=== PATIENT | female | born 1945 | race Caucasian/White ===

== ENCOUNTER 2016-11-17 16:41 | Emergency (ER) | payer OTHER, MEDICARE ==
[2016-11-17 17:23] VITALS: PULSE 67; TEMP 98.2; BMI 32.3
--- NOTE | 2016-11-17 18:00 | PDOC ---
History of Present Illness - General History Source: Patient, Family - History of Present Illness Timing/Duration: other (today) Associated Symptoms: denies: chest pain, cough, fever/chills, headaches, malaise , nausea/vomiting, shortness of breath, syncope, weakness <Pippa Lujan - Last Filed: 11/17/16 19:04> <Yamilka Clemente - Last Filed: 11/17/16 20:00> <Magda Li - Last Filed: 11/18/16 17:45> - General Chief Complaint: Blood Pressure Problem Stated Complaint: BLOOD PRESSURE PROBLEM Time Seen by Provider: 11/17/16 17:37 Past History - Past Medical History Anemia: No Asthma: No Cancer: Yes (radiation left breast) Cardiac Disorders: No CVA: No COPD: No CHF: No Dementia: No Diabetes: Yes GI Disorders: No Disorders: No HTN: Yes Hypercholesterolemia: No Liver Disease: No Seizures: No Thyroid Disease: No - Surgical History Abdominal Surgery: No Appendectomy: No Cardiac Surgery: No Cholecystectomy: No Lung Surgery: No Neurologic Surgery: No Orthopedic Surgery: No - Suicide/Smoking/Psychosocial Hx Smoking Status: No Smoking History: Never smoked Have you smoked in the past 12 months: No Number of Cigarettes Smoked Daily: 0 Information on smoking cessation initiated: No Hx Alcohol Use: No Drug/Substance Use Hx: No Substance Use Type: None Hx Substance Use Treatment: No <Pippa Lujan - Last Filed: 11/17/16 19:04> <Yamilka Clemente - Last Filed: 11/17/16 20:00> <Magda Li - Last Filed: 11/18/16 17:45> - Past Medical History Allergies/Adverse Reactions: Allergies Allergy/AdvReac Type Severity Reaction Status Date / Time Penicillins Allergy Unknown Verified 11/17/16 17:24 Home Medications: Ambulatory Orders Metformin HCl [Glucophage -] 500 mg PO BID #0 tablet 11/15/12 Lisinopril [Prinivil -] 40 mg PO DAILY 07/28/15 Alprazolam [Xanax] 0.25 mg PO TID PRN #12 tablet MDD 3 tab 11/17/16 Anastrozole [Arimidex -] 1 mg PO DAILY 11/17/16 Nebivolol [Bystolic -] 10 mg PO DAILY 11/17/16 Pantoprazole Sodium 40 mg PO DAILY 11/17/16 Review of Systems - Review of Systems Constitutional: No: Chills, Fever Respiratory: No: Cough, Shortness of Breath Cardiac (ROS): No: Chest Pain, Lightheadedness, Palpitations, Syncope ABD/GI: No: Nausea, Vomiting Neurological: No: Headache, Numbness, Tingling, Weakness, Dizziness <MacedonianPippa - Last Filed: 11/17/16 19:04> *Physical Exam - Vital Signs Last Vital Signs Temp Pulse Resp BP Pulse Ox 98.2 F 67 16 183/77 97 11/17/16 17:17 11/17/16 17:17 11/17/16 17:17 11/17/16 17:17 11/17/16 17:17 - Physical Exam General Appearance: Yes: Appropriately Dressed. No: Apparent Distress HEENT: positive: Normal Voice Neck: positive: Supple Respiratory/Chest: positive: Lungs Clear, Normal Breath Sounds. negative: Respiratory Distress Cardiovascular: positive: Regular Rate, S1, S2 Gastrointestinal/Abdominal: positive: Soft. negative: Tender, Pulsatile Mass Extremity: positive: Normal Inspection Integumentary: positive: Dry, Warm Neurologic: positive: Fully Oriented, Alert, Normal Mood/Affect, Motor Strength 5/5. negative: Facial Droop <Pippa Lujan - Last Filed: 11/17/16 19:04> - Vital Signs Last Vital Signs Temp Pulse Resp BP Pulse Ox 98.2 F 67 16 183/77 98 11/17/16 17:17 11/17/16 17:17 11/17/16 17:17 11/17/16 17:17 11/17/16 18:14 <Yamilka Clemente - Last Filed: 11/17/16 20:00> - Vital Signs Last Vital Signs Temp Pulse Resp BP Pulse Ox 98.2 F 67 16 164/86 98 11/17/16 17:17 11/17/16 17:17 11/17/16 17:17 11/17/16 20:25 11/17/16 18:14 <Magda Li - Last Filed: 11/18/16 17:45> Heart Score/ECG Review - ECG Intrepretation Comment:: 11/17/16 18:20 Twelve-lead EKG was performed and reviewed by me. There is normal sinus rhythm with a normal rate. The axis is normal. The intervals are normal. There are no ST or T wave abnormalities. Impression: Normal twelve-lead EKG <MacedonianPippa - Last Filed: 11/17/16 19:04> ED Treatment Course - LABORATORY CBC & Chemistry Diagram: 11/17/16 18:05 11/17/16 18:05 <Pippa Lujan - Last Filed: 11/17/16 19:04> - LABORATORY CBC & Chemistry Diagram: 11/17/16 18:05 11/17/16 18:05 - ADDITIONAL ORDERS Additional order review: Laboratory Results 11/17/16 11/17/16 19:27 18:05 Sodium 141 Potassium 4.2 Chloride 109 H Carbon Dioxide 25 Anion Gap 7 L BUN 21 H Creatinine 0.9 Creat Clearance w eGFR > 60 Random Glucose 107 H Calcium 8.9 Total Bilirubin 0.6 D AST 14 L D ALT 21 D Alkaline Phosphatase 73 Creatine Kinase 99 Troponin I < 0.02 Total Protein 7.2 Albumin 3.7 D Urine Color Lt. yellow Urine Appearance Clear Urine pH 6.5 D Urine Protein Negative Urine Glucose (UA) Negative Urine Ketones Negative Urine Blood Negative Urine Nitrite Negative Urine Bilirubin Negative Urine Urobilinogen 0.2 Urine RBC None Urine WBC <1 Ur Epithelial Cells Rare Urine Bacteria Rare 11/17/16 18:05 RBC 4.59 MCV 83.1 MCHC 33.9 RDW 13.8 MPV 8.0 Neutrophils % 72.5 Lymphocytes % 16.3 D Monocytes % 9.5 Eosinophils % 1.2 D Basophils % 0.5 <Yamilka Clemente D - Last Filed: 11/17/16 20:00> - LABORATORY CBC & Chemistry Diagram: 11/17/16 18:05 11/17/16 18:05 - ADDITIONAL ORDERS Additional order review: 11/17/16 18:05 RBC 4.59 MCV 83.1 MCHC 33.9 RDW 13.8 MPV 8.0 Neutrophils % 72.5 Lymphocytes % 16.3 D Monocytes % 9.5 Eosinophils % 1.2 D Basophils % 0.5 - Medications Given in the ED: ED Medications Discontinued Medications Generic Name Dose Route Start Last Admin Trade Name Freq PRN Reason Stop Dose Admin Alprazolam 0.25 mg 11/17/16 20:00 11/17/16 20:09 Xanax - PO 11/17/16 20:01 0.25 mg ONCE ONE Administration <Magda Li - Last Filed: 11/18/16 17:45> Medical Decision Making - Medical Decision Making 11/17/16 17:56 71-year-old female, history of NIDDM, gastritis, HTN on 40mg of lisinopril, sent in from Dr. Flores's office today for elevated BP in office. Patient states she had a routine appointment today with GI today and when vitals were taken, found to have a blood pressure of 200/100 and sent to the ED. Patient not complaining of any symptoms at this time and denies headache, dizziness, blurry vision, focal weakness, chest pain or shortness of breath. See exam Asymptomatic elevated BP Pt well pat w/ BP of 183/77, was 200/100 in office today per family Rest of exam unremarkable -labs r/o EOD and reassess -anticipate discharge 11/17/16 17:58 11/17/16 18:49 11/17/16 18:51 Pt signed out to ANNE Clemente pending ua and reassessment 11/17/16 18:53 11/17/16 19:05 <Pippa Lujan - Last Filed: 11/17/16 19:04> *DC/Admit/Observation/Transfer <Pippa Lujan - Last Filed: 11/17/16 19:04> <Yamilka Clemente - Last Filed: 11/17/16 20:00> - Attestations Physician Attestion: I reviewed the case with the mid-level practitioner and agree with the mid- level practitioner's assessment, diagnosis and disposition. <Magda Li - Last Filed: 11/18/16 17:45> Diagnosis at time of Disposition: Elevated blood pressure reading - Discharge Dispostion Disposition: HOME Condition at time of disposition: Improved - Prescriptions Prescriptions: Alprazolam [Xanax] 0.25 mg PO TID PRN #12 tablet MDD 3 tab PRN Reason: Anxiety - Referrals Referrals: Vernon Flores MD [Primary Care Provider] - - Patient Instructions Printed Discharge Instructions: DI for High Blood Pressure Additional Instructions: Your blood pressure improved in ED but was still elevated. Your blood work were all normal. Over the weekend, please go to any local drug store and have BP checked by pharmacist. If BP persistently significantly elevated and you develop symptoms, return to the ED immediately. Otherwise follow-up with your PMD on Sunday for further management of your hypertension Print Language: VIETNAMESE
[2016-11-17 18:19] LABS: BASOPHIL 0.5 % (0-2.0); EOSINOPHIL 1.2 % (0-4.5); MCH 28.2 pg (25.7-33.7); MCHC 33.9 g/dl (32.0-36.0); MEAN CELL VOLUME 83.1 fl (80-96); NEUTROPHILS 72.5 % (42.8-82.8); PLATELET COUNT 271 K/MM3 (134-434); RDW 13.8 % (11.6-15.6)
[2016-11-17 18:39] LABS: ALBUMIN 3.7 g/dl (3.4-5.0); ANION GAP 7 (8-16); BILIRUBIN,TOTAL 0.6 mg/dL (0.2-1.0); CALCIUM 8.9 mg/dL (8.5-10.1); CO2 25 mmol/L (21-32); CREATININE 0.9 mg/dL (0.55-1.02); GLUCOSE,RANDOM 107 mg/dL (74-106); SGOT/AST 14 U/L (15-37); SGPT/ALT 21 U/L (12-78); TOT PROT 7.2 g/dl (6.4-8.2)
[2016-11-17 18:42] LABS: ALK PHOS 73 U/L (45-117); CPK 99 IU/L (26-192); TROPONIN I < 0.02 ng/ml (0.00-0.05)
[2016-11-17 19:42] LABS: PH,URINE 6.5 (5.0-8.0); URINE APPEARANCE CLEAR; URINE BILIRUBIN NEGATIVE (NEGATIVE); URINE BLOOD NEGATIVE (NEGATIVE); URINE COLOR LT. YELLOW; URINE GLUCOSE (UA) NEGATIVE (NEGATIVE); URINE KETONE NEGATIVE (NEGATIVE); URINE LEUK ESTERASE 1+ (NEGATIVE); URINE NITRITE NEGATIVE (NEGATIVE); URINE PROTEIN NEGATIVE (NEGATIVE); URINE UROBILINOGEN 0.2 mg/dL (0.2-1.0)
[2016-11-17 19:50] LABS: URINE BACTERIA RARE /hpf (NONE SEEN); URINE WBC <1 /hpf (3-5)
[2016-11-17] MEDS ORDERED: ALPRAZolam 0.25 MG TABLET PO ONE (20:00)
[2016-11-17] MEDS ORDERED: ALPRAZolam 0.25 MG TABLET ONE (20:08)
[2016-11-17 20:26] VITALS: BP 164/86
--- NOTE | 2016-11-19 08:45 | EKG ---
Test Reason : Blood Pressure : / mmHG Vent. Rate : 061 BPM Atrial Rate : 061 BPM P-R Int : 150 ms QRS Dur : 088 ms QT Int : 414 ms P-R-T Axes : 025 000 -05 degrees QTc Int : 416 ms NORMAL SINUS RHYTHM VOLTAGE CRITERIA FOR LEFT VENTRICULAR HYPERTROPHY ABNORMAL ECG Confirmed by MD ERIN, CAMERON ([id number]) on 11/19/2016 8:44:27 AM Referred By: Confirmed By:CAMERON KHAN MD
== END 2016-11-17 20:25 | disposition home or self-care (01) ==
LOC: JER 16:41
DX: I10 Essential (primary) hypertension (principal); E11.9 Type 2 diabetes mellitus without complications; Z79.84 Long term (current) use of oral hypoglycemic drugs; K29.70 Gastritis, unspecified, without bleeding; Z85.3 Personal history of malignant neoplasm of breast
CPT/HCPCS: 36415; 80053; 81003; 81015; 84484; 85025; 93005; 93010; 99284-25

== ENCOUNTER 2017-04-12 15:18 | Observation (INO) | payer OTHER, MEDICARE ==
--- NOTE | 2017-04-12 16:09 | PDOC ---
Rapid Medical Evaluation Chief Complaint: Blood Pressure Problem Time Seen by Provider: 04/12/17 16:03 Medical Evaluation: Allergies Allergy/AdvReac Type Severity Reaction Status Date / Time Penicillins Allergy Unknown Verified 11/17/16 17:24 04/12/17 16:04 pt c/o: sent by pmd Dr. Platt for eval of uncontrolled BP despite meds Pt on brief exam: 205/95,vss Pt ordered for: went directly to main ED pt to proceed to the ED: Discharge Disposition - Diagnosis Elevated blood pressure reading - Discharge Dispostion Disposition: HOME Condition at time of disposition: Improved - Prescriptions - Referrals - Patient Instructions - Post Discharge Activity
[2017-04-12 17:05] LABS: BASO % 1.4 % (0-2.0); EOS % 1.1 % (0-4.5); HEMATOCRIT 39.2 % (32.4-45.2); HEMOGLOBIN 13.2 GM/dL (10.7-15.3); LYMPH % 17.5 % (8-40); MCH 28.2 pg (25.7-33.7); MCHC 33.6 g/dl (32.0-36.0); MEAN PLT VOLUME 8.4 fl (7.5-11.1); MONO % 10.1 % (3.8-10.2); NEUT % 69.9 % (42.8-82.8); PLATELET COUNT 256 K/MM3 (134-434); RBC 4.67 M/mm3 (3.60-5.2); RDW 14.1 % (11.6-15.6)
--- NOTE | 2017-04-12 17:15 | PDOC ---
History of Present Illness - General Chief Complaint: Blood Pressure Problem Stated Complaint: BLOOD PRESSURE PROBLEM Time Seen by Provider: 04/12/17 16:03 History Source: Patient Exam Limitations: No Limitations - History of Present Illness Initial Comments: 04/12/17 17:07 The patient is a 71F with a PMH of DM and HTN who presents to the ER with asymptomatic elevated BP. The patient states that she went to her PCP's office ( Dr. Palma) and was sent directly to the main ER for evaluation. She denies any symptoms and feels completely fine. She denies CP, SOB, headache, changes in vision, numbness, tingling, weakness, abdominal pain. Past History - Past Medical History Allergies/Adverse Reactions: Allergies Allergy/AdvReac Type Severity Reaction Status Date / Time Penicillins Allergy Unknown Verified 04/12/17 16:07 Home Medications: Ambulatory Orders metFORMIN HCL [Glucophage -] 500 mg PO BID #0 tablet 11/15/12 Lisinopril [Prinivil -] 40 mg PO DAILY 07/28/15 Alprazolam [Xanax] 0.25 mg PO TID PRN #12 tablet MDD 3 tab 11/17/16 Anastrozole [Arimidex -] 1 mg PO DAILY 11/17/16 Nebivolol [Bystolic -] 10 mg PO DAILY 11/17/16 Pantoprazole Sodium 40 mg PO DAILY 11/17/16 Anemia: No Asthma: No Cancer: Yes (radiation left breast) Cardiac Disorders: No CVA: No COPD: No CHF: No Dementia: No Diabetes: Yes GI Disorders: No Disorders: No HTN: Yes Hypercholesterolemia: No Liver Disease: No Seizures: No Thyroid Disease: No - Surgical History Abdominal Surgery: No Appendectomy: No Cardiac Surgery: No Cholecystectomy: No Lung Surgery: No Neurologic Surgery: No Orthopedic Surgery: No - Suicide/Smoking/Psychosocial Hx Smoking Status: No Smoking History: Never smoked Have you smoked in the past 12 months: No Number of Cigarettes Smoked Daily: 0 Information on smoking cessation initiated: No Hx Alcohol Use: No Drug/Substance Use Hx: No Substance Use Type: None Hx Substance Use Treatment: No Review of Systems - Review of Systems Able to Perform ROS?: Yes Comments:: 04/12/17 17:22 GENERAL/CONSTITUTIONAL: No fever or chills. No weakness. HEAD, EYES, EARS, NOSE AND THROAT: No change in vision. No ear pain or discharge. No sore throat. CARDIOVASCULAR: Positive for elevated BP. No chest pain, palpitations, or lightheadedness. RESPIRATORY: No cough, wheezing, shortness of breath, or hemoptysis. GASTROINTESTINAL: No nausea, vomiting, diarrhea, constipation, or abdominal pain. GENITOURINARY: No dysuria, frequency, hematuria, or change in urination. MUSCULOSKELETAL: No joint or muscle swelling or pain. No neck or back pain. SKIN: No rash or lesions. NEUROLOGIC: No headache, numbness, tingling, weakness, loss of consciousness, or change in strength/sensation. ENDOCRINE: No increased thirst. No abnormal weight change. HEMATOLOGIC/LYMPHATIC: No anemia, easy bleeding, or history of blood clots. ALLERGIC/IMMUNOLOGIC: No hives or skin allergy. Is the patient limited Iranian proficient: No *Physical Exam - Vital Signs Last Vital Signs Temp Pulse Resp BP Pulse Ox 98.0 F 65 18 205/95 100 04/12/17 16:03 04/12/17 16:03 04/12/17 16:03 04/12/17 16:03 04/12/17 16:03 - Physical Exam Comments: 04/12/17 17:23 GENERAL: Well developed, well nourished. Awake and alert. No acute distress. HEENT: Normocephalic, atraumatic. Hearing grossly normal. Moist mucous membranes. PERRLA, EOMI. No conjunctival pallor. Sclera are non-icteric. NECK: Supple. Full ROM. No JVD. CARDIOVASCULAR: Regular rate and rhythm. No murmurs, rubs, or gallops. PULMONARY: No evidence of respiratory distress. Lungs clear to auscultation bilaterally. No wheezing, rales or rhonchi. ABDOMINAL: Soft. Non-tender. Non-distended. No rebound or guarding. GENITOURINARY: No CVA tenderness bilaterally. MUSCULOSKELETAL: Normal range of motion at all joints. No bony deformities or tenderness. EXTREMITIES: No cyanosis. No clubbing. No edema. No calf tenderness. SKIN: Warm and dry. Normal capillary refill. No rashes. No jaundice. NEUROLOGICAL: Alert, awake, appropriate. Cranial nerves 2-12 intact. Normal speech. Gait is normal without ataxia. PSYCHIATRIC: Cooperative. Good eye contact. Appropriate mood and affect. Heart Score/ECG Review #1 ECG reviewed & interpreted by me at: 17:24 General ECG Interpretation: Sinus Rhythm, Normal Rate, Normal Intervals, No acute ischemic changes Compared to previous ECG there are: Changes noted (See remarks) 04/12/17 17:24 Sinus rhythm 66 SC 172 QRS 90 QTc 431 No acute ischemic changes noted. New onset bigeminy noted. ED Treatment Course - LABORATORY CBC & Chemistry Diagram: 04/12/17 16:50 04/12/17 16:50 Medical Decision Making - Medical Decision Making 04/12/17 17:25 The patient is a 71F with a PMH of DM and HTN who is on hormonal replacement therapy and presents with elevated BP with no complaints. Her EKG shows bigeminy. Dr. Foster suggests admitting the patient for observation for a cardiac workup. 04/12/17 18:23 Dr. Mcdonald accepts admission. *DC/Admit/Observation/Transfer Diagnosis at time of Disposition: Elevated blood pressure reading - Discharge Dispostion Condition at time of disposition: Stable Admit: Yes - Referrals - Patient Instructions - Post Discharge Activity
--- NOTE | 2017-04-12 17:35 | PDOC ---
Attending Attestation - Resident Resident Name: RobertjacintavanessaRoque - ED Attending Attestation I have performed the following: I have examined & evaluated the patient, The case was reviewed & discussed with the resident, I agree w/resident's findings & plan, Exceptions are as noted - HPI HPI: 04/12/17 17:15 71-year-old female with history of hypertension, diabetes, left-sided breast cancer status post lumpectomy on hormonal therapy sent in for evaluation for hypertension. The patient is asymptomatic. Went to go for routine follow-up at her primary care physician's office. She saw associated of her primary care physician and noted that the blood pressures elevated sent the patient to the ER. She denies any chest pain or short of breath or palpitations. She reports that she is adherent to her medications including diastolic and enalapril. Denies fevers, chills, cough, vomiting, diarrhea. - Physicial Exam PE: 04/12/17 17:48 GENERAL: Awake, alert, and fully oriented, in no acute distress. HEAD: No signs of trauma EYES: PERRLA, EOMI, sclera anicteric, conjunctiva clear ENT: Auricles normal inspection, hearing grossly normal, nares patent. NECK: Normal ROM, supple. LUNGS: Breath sounds equal, clear to auscultation bilaterally. No wheezes, and no crackles HEART: normal S1 and S2, no murmurs, rubs or gallops. Bigemy beats. ABDOMEN: Soft, nontender, normoactive bowel sounds. No guarding, no rebound. No masses EXTREMITIES: Normal range of motion, no edema. No clubbing or cyanosis. No cords, erythema, or tenderness NEUROLOGICAL: Cranial nerves II through XII grossly intact. Normal speech, normal gait SKIN: Warm, Dry, normal turgor, no rashes or lesions noted. - Medical Decision Making 04/12/17 17:53 Vital Signs Temp Pulse Resp BP Pulse Ox 98.0 F 65 18 205/95 100 04/12/17 16:03 04/12/17 16:03 04/12/17 16:03 04/12/17 16:03 04/12/17 16:03 Patient has a somatic hypertension. However, the patient was noted to have bigeminy on EKG. Given that she is on hormonal therapy for cancer in addition to her age, hypertension diabetes, I had spoken with the cardiac is Dr. Bhagat. Given these risks, patient is at risk for coronary disease. She recommends admission to the hospital for further management workup. We'll obtain blood work to look for metabolic disarray for the bigeminy and ultimately admit the patient to hospital. Heart Score/ECG Review #1 ECG reviewed & interpreted by me at: 17:00 04/12/17 17:49 NSR 66, pattern of bigemy, LVH, no std/dick, TWI III, QTC 431 msec
[2017-04-12] MEDS ORDERED: amLODIPine BESYLATE 2.5 MG TABLET (FP) PO ONE (18:29)
[2017-04-12] MEDS ORDERED: amLODIPine BESYLATE 5 MG TABLET (FP) ONE ×2 (18:40→21:41)
[2017-04-12] MEDS ORDERED: ALPRAZolam 0.25 MG TABLET PO PRN (18:52)
--- NOTE | 2017-04-12 19:40 | HP ---
CHIEF COMPLAINT: Hypertensive at clinic PCP: Dr. Alvarez HISTORY OF PRESENT ILLNESS: This is a 71 year old female with a significant medical history of hypertension and diabetes, right breast CA for which she is currently taking Arimidex (a hormone based chemotherapy) who was sent over from clinic due to elevated blood pressure. She denies any associated symptoms including VAUGHN, SOB, blurry vision, chest pain, palpitations, leg swelling, n/v. In the ER bp was 205/95. Amlodipine 2.5 given ; brought BP down to 185/87. ECG showed sinus rhythm with PAC and bigeminy (new). Recent Travel: no PAST MEDICAL HISTORY: HTN, DM , breast CA PAST SURGICAL HISTORY: Social History: Smoking:no Alcohol:no Drugs: no Family History: Allergies Penicillins Allergy (Unknown, Verified 04/12/17 16:07) HOME MEDICATIONS: Home Medications Medication Instructions Recorded metFORMIN HCL [Glucophage -] 500 mg PO BID #0 tablet 11/15/12 Lisinopril [Prinivil -] 40 mg PO DAILY 07/28/15 Alprazolam [Xanax] 0.25 mg PO TID PRN #12 tablet MDD 11/17/16 3 tab Anastrozole [Arimidex -] 1 mg PO DAILY 11/17/16 Nebivolol [Bystolic -] 10 mg PO DAILY 11/17/16 Latanoprost 0.005% Eye Drops 1 drop HS 04/12/17 [Xalatan 0.005% Eye Drops -] REVIEW OF SYSTEMS CONSTITUTIONAL: Absent: fever, chills, diaphoresis, generalized weakness, malaise, loss of appetite, weight change HEENT: Absent: rhinorrhea, nasal congestion, throat pain, throat swelling, difficulty swallowing, mouth swelling, ear pain, eye pain, visual changes CARDIOVASCULAR: Absent: chest pain, syncope, palpitations, irregular heart rate, lightheadedness , peripheral edema RESPIRATORY: Absent: cough, shortness of breath, dyspnea with exertion, orthopnea, wheezing, stridor, hemoptysis GASTROINTESTINAL: Absent: abdominal pain, abdominal distension, nausea, vomiting, diarrhea, constipation, melena, hematochezia GENITOURINARY: Absent: dysuria, frequency, urgency, hesitancy, hematuria, flank pain, genital pain MUSCULOSKELETAL: Absent: myalgia, arthralgia, joint swelling, back pain, neck pain SKIN: Absent: rash, itching, pallor HEMATOLOGIC/IMMUNOLOGIC: Absent: easy bleeding, easy bruising, lymphadenopathy, frequent infections ENDOCRINE: Absent: unexplained weight gain, unexplained weight loss, heat intolerance, cold intolerance NEUROLOGIC: Absent: headache, focal weakness or paresthesias, dizziness, unsteady gait, seizure, mental status changes, bladder or bowel incontinence PSYCHIATRIC: Absent: anxiety, depression, suicidal or homicidal ideation, hallucinations. PHYSICAL EXAMINATION Vital Signs - 24 hr 04/12/17 04/12/17 16:03 18:28 Temperature 98.0 F Pulse Rate 65 Pulse Rate [ 63 Apical] Respiratory 18 18 Rate Blood Pressure 205/95 Blood Pressure 182/97 [Right Arm] O2 Sat by Pulse 100 Oximetry (%) GENERAL: Awake, alert, and fully oriented, in no acute distress. HEAD: Normal with no signs of trauma. NECK: Normal range of motion, supple without lymphadenopathy, JVD, or masses. LUNGS: Breath sounds equal, clear to auscultation bilaterally. No wheezes, and no crackles. No accessory muscle use. HEART: Regular rate and rhythm, normal S1 and S2 without murmur, rub or gallop. ABDOMEN: Soft, nontender, not distended, normoactive bowel sounds, no guarding, no rebound, no masses. No hepatomegaly or splenomegaly. MUSCULOSKELETAL: Normal range of motion at all joints. No bony deformities or tenderness. No CVA tenderness. UPPER EXTREMITIES: 2+ pulses, warm, well-perfused. No cyanosis. No clubbing. No peripheral edema. LOWER EXTREMITIES: 2+ pulses, warm, well-perfused. No calf tenderness. No peripheral edema. NEUROLOGICAL: Cranial nerves II-XII intact. Normal speech. Normal gait. PSYCHIATRIC: Cooperative. Good eye contact. Appropriate mood and affect. SKIN: Warm, dry, normal turgor, no rashes or lesions noted, normal capillary refill. Laboratory Results - last 24 hr 04/12/17 04/12/17 16:50 16:50 WBC 10.0 RBC 4.67 Hgb 13.2 Hct 39.2 MCV 84.0 MCH 28.2 MCHC 33.6 RDW 14.1 Plt Count 256 MPV 8.4 Neutrophils % 69.9 Lymphocytes % 17.5 Monocytes % 10.1 Eosinophils % 1.1 Basophils % 1.4 Sodium Cancelled Potassium Cancelled Chloride Cancelled Carbon Dioxide Cancelled Anion Gap Cancelled BUN Cancelled Creatinine Cancelled Creat Clearance w eGFR Cancelled Random Glucose Cancelled Calcium Cancelled Total Bilirubin Cancelled AST Cancelled ALT Cancelled Alkaline Phosphatase Cancelled Creatine Kinase Cancelled Troponin I Cancelled B-Natriuretic Peptide Cancelled Total Protein Cancelled Albumin Cancelled ASSESSMENT/PLAN: This is a 71 year old female with a current history of DM, HTN and breast CA, presented with hypertensive urgency. #Hypertensive Urgency: poss sec to chemo med ?; med compliance ? -amlodipine given in ER -continue home meds -cardiac monitoring -echo in am -cardiology consulted #DM: -BGM -insulin SS #Breast CA: -in Arimedex FEN: FLuids: po intake Diet: low Na; diabetic Electrolytes: wnl VTE: heparin sq Disposition tele obs Case discussed with attending Dr. Jasper Figueroa PGY-2 Problem List - Problem (1) Hypertensive urgency Code(s): I16.0 - HYPERTENSIVE URGENCY (2) Hypertension Code(s): I10 - ESSENTIAL (PRIMARY) HYPERTENSION Qualifiers: Hypertension type: essential hypertension Qualified Code(s): I10 - Essential (primary) hypertension Visit type - Emergency Visit Emergency Visit: Yes Care time: The patient presented to the Emergency Department on the above date and was hospitalized for further evaluation of their emergent condition. - New Patient This patient is new to me today: Yes Date on this admission: 04/12/17 - Critical Care Critical Care patient: No
[2017-04-12] MEDS ORDERED: amLODIPine BESYLATE 5 MG TABLET (FP) PO ONE (21:27)
--- NOTE | 2017-04-12 22:21 | PN ---
Teaching Attending Note Name of Resident: Celia Figueroa ATTENDING PHYSICIAN STATEMENT I saw and evaluated the patient. I reviewed the resident's note and discussed the case with the resident. I agree with the resident's findings and plan as documented. SUBJECTIVE:71yo F wtih PMH HTN, DM and R breast ca sent to ER by PMD for elevated BP. as per pt she had no symptoms. complaint with her medications. states her BP is usually controlled. no recent medications changes. was started on arimidex 2 years ago for her breast ca and told she will require it for 5 years. denies Cp, SOB, fever, chills, blurred vision, VAUGHN, tinnitus OBJECTIVE: Last Vital Signs Temp Pulse Resp BP Pulse Ox 98.0 F 68 16 195/98 98 04/12/17 16:03 04/12/17 20:29 04/12/17 20:29 04/12/17 20:29 04/12/17 20:29 General NAD CV S1 S2 RRR no murmur/rub/gallop Lungs CTA B/L no wheezing/rales/rhonchi Abdomen soft NT/ND Extremities no pedal edema ASSESSMENT AND PLAN: 71yo F wtih PMH HTN, DM and R breast ca sent to ER by PMD for elevated BP 1. HTN urgency- tele observation. no ST changes on EKG. possible exacerbated by arimidex. received total of norvasc 7.5mg here.repeat BP 195/98. will give hydralazine 10mg x1. monitor BP closely if does not respond will start on nicardipine ggt. cont home medications. cardio consulted. echo pending 2. DM- diabetic diet. hold oral agents, iss, bgm 3. breast ca on arimidex- cont for now 4. DVT ppx - hep sq
[2017-04-12] MEDS ORDERED: HEPARIN NA (PORCINE) 5,000 UNITS/ML 1ML VIAL ONE (22:33)
[2017-04-12] MEDS: HEPARIN NA (PORCINE) 5,000 UNITS/ML 1ML VIAL SQ SCH (22:45)
[2017-04-12] MEDS ORDERED: hydrALAZINE HCL 10 MG TABLET PO ONE (22:45)
[2017-04-12] MEDS: INSULIN SLIDING SCALE (NOVOLOG) 1 VIAL SQ SCH (22:46)
[2017-04-12] MEDS ORDERED: hydrALAZINE HCL 25 MG TABLET (FP) ONE (23:11)
[2017-04-13 03:38] VITALS: BMI 30.8
[2017-04-13] MEDS: INSULIN SLIDING SCALE (NOVOLOG) 1 VIAL SQ SCH ×4 (06:20→22:05)
[2017-04-13] MEDS: HEPARIN NA (PORCINE) 5,000 UNITS/ML 1ML VIAL SQ SCH ×3 (06:28→22:05)
--- NOTE | 2017-04-13 07:40 | PN ---
Physical Exam: SUBJECTIVE: Patient seen and examined OBJECTIVE: Vital Signs Period Temp Pulse Resp BP Sys/Jones Pulse Ox Last 24 Hr 97.7 F-98.0 F 60-74 16-20 136-205/71-100 95-100 GENERAL: The patient is awake, alert, and fully oriented, in no acute distress. HEAD: Normal with no signs of trauma. EYES: PERRL, extraocular movements intact, sclera anicteric, conjunctiva clear. No ptosis. ENT: Ears normal, nares patent, oropharynx clear without exudates, moist mucous membranes. NECK: Trachea midline, full range of motion, supple. LUNGS: Breath sounds equal, clear to auscultation bilaterally, no wheezes, no crackles, no accessory muscle use. HEART: Regular rate and rhythm, S1, S2 without murmur, rub or gallop. ABDOMEN: Soft, nontender, nondistended, normoactive bowel sounds, no guarding, no rebound, no hepatosplenomegaly, no masses. EXTREMITIES: 2+ pulses, warm, well-perfused, no edema. NEUROLOGICAL: Cranial nerves II through XII grossly intact. Normal speech, gait not observed. PSYCH: Normal mood, normal affect. SKIN: Warm, dry, normal turgor, no rashes or lesions noted Laboratory Results - last 24 hr 04/12/17 04/12/17 04/12/17 16:50 16:50 22:31 WBC 10.0 RBC 4.67 Hgb 13.2 Hct 39.2 MCV 84.0 MCH 28.2 MCHC 33.6 RDW 14.1 Plt Count 256 MPV 8.4 Neutrophils % 69.9 Lymphocytes % 17.5 Monocytes % 10.1 Eosinophils % 1.1 Basophils % 1.4 Sodium Cancelled Potassium Cancelled Chloride Cancelled Carbon Dioxide Cancelled Anion Gap Cancelled BUN Cancelled Creatinine Cancelled Creat Clearance w eGFR Cancelled POC Glucometer 129.20669 Random Glucose Cancelled Calcium Cancelled Total Bilirubin Cancelled AST Cancelled ALT Cancelled Alkaline Phosphatase Cancelled Creatine Kinase Cancelled Troponin I Cancelled B-Natriuretic Peptide Cancelled Total Protein Cancelled Albumin Cancelled 04/13/17 05:13 WBC RBC Hgb Hct MCV MCH MCHC RDW Plt Count MPV Neutrophils % Lymphocytes % Monocytes % Eosinophils % Basophils % Sodium Potassium Chloride Carbon Dioxide Anion Gap BUN Creatinine Creat Clearance w eGFR POC Glucometer 114 Random Glucose Calcium Total Bilirubin AST ALT Alkaline Phosphatase Creatine Kinase Troponin I B-Natriuretic Peptide Total Protein Albumin Active Medications Generic Name Dose Route Start Last Admin Trade Name Freq PRN Reason Stop Dose Admin Alprazolam 0.25 mg 04/12/17 18:52 Xanax - PO Q8H PRN ANXIETY Anastrozole 1 mg 04/13/17 10:00 Arimidex - PO DAILY [facility] Heparin Sodium (Porcine) 5,000 unit 04/12/17 22:00 04/13/17 06:28 Heparin - SQ 5,000 unit TID [facility] Administration Insulin Aspart 1 vial 04/12/17 22:00 04/13/17 06:20 Novolog Vial Sliding Scale - SQ Not Given ACHS [facility] Protocol Lisinopril 40 mg 04/13/17 10:00 Prinivil PO DAILY [facility] Nebivolol 10 mg 04/13/17 10:00 Bystolic - PO DAILY [facility] Pantoprazole Sodium 40 mg 04/13/17 10:00 Protonix - PO DAILY [facility] ASSESSMENT/PLAN:
[2017-04-13 07:54] LABS: ANION GAP 7 (8-16); BLOOD UREA NITROGEN 17 mg/dL (7-18); CALCIUM 8.7 mg/dL (8.5-10.1); CHLORIDE 107 mmol/L (98-107); CO2 28 mmol/L (21-32); GLUCOSE,RANDOM 111 mg/dL (74-106); POTASSIUM 3.9 mmol/L (3.5-5.1); SODIUM 142 mmol/L (136-145)
[2017-04-13 07:56] LABS: CREATININE 0.9 mg/dL (0.55-1.02); PHOSPHOROUS 3.7 mg/dL (2.5-4.9)
[2017-04-13] MEDS ORDERED: PT OWN MED DRAWER 7, Y5N ONE ×2 (08:59→10:08)
[2017-04-13] MEDS: PANTOPRAZOLE 40 MG TABLET (FP) PO SCH (09:06)
[2017-04-13] MEDS: LISINOPRIL 20 MG TABLET (FP) PO SCH (09:06)
[2017-04-13] MEDS: NEBIVOLOL 10 MG TABLET (FP) PO SCH (09:06)
--- NOTE | 2017-04-13 09:13 | EKG ---
Test Reason : Blood Pressure : / mmHG Vent. Rate : 066 BPM Atrial Rate : 066 BPM P-R Int : 172 ms QRS Dur : 090 ms QT Int : 412 ms P-R-T Axes : 048 011 000 degrees QTc Int : 431 ms SINUS RHYTHM WITH PREMATURE ATRIAL COMPLEXES IN A PATTERN OF BIGEMINY MODERATE VOLTAGE CRITERIA FOR LVH, MAY BE NORMAL VARIANT WHEN COMPARED WITH ECG OF 17-NOV-2016 17:46, PREMATURE ATRIAL COMPLEXES ARE NOW PRESENT Confirmed by RAMONITA JIMENEZ MD ([id number]) on 04/13/2017 9:12:56 AM Referred By: Confirmed By:RAMONITA JIMENEZ MD
[2017-04-13] MEDS: amLODIPine BESYLATE 5 MG TABLET (FP) PO SCH (10:26)
[2017-04-13] MEDS: ANASTROZOLE 1 MG TABLET PO SCH (11:01)
--- NOTE | 2017-04-13 11:23 | CON.CARD ---
Cardiology Consult (text) - Consultation Consultation Note: cc: sent to er from pmd for high bp hpi: 71 f hx htn, dm sent to er from pmd for high bp. No hx hrt dz. No cp, sob, palps, dizzy, loc, pnd, orthopnea, le edema. BP elevated in er, now improved after meds. Pt feels well, asking to go home. pmh: per hpi psh: nc social: no tob fam: no premature cad, scd ros: per hpi; no nvd, fever, cough, baltazar, vision changes, gib, dysuria, hematuria meds: Ambulatory Orders metFORMIN HCL [Glucophage -] 500 mg PO BID #0 tablet 11/15/12 Lisinopril [Prinivil -] 40 mg PO DAILY 07/28/15 Alprazolam [Xanax] 0.25 mg PO TID PRN #12 tablet MDD 3 tab 11/17/16 Anastrozole [Arimidex -] 1 mg PO DAILY 11/17/16 Nebivolol [Bystolic -] 10 mg PO DAILY 11/17/16 Latanoprost 0.005% Eye Drops [Xalatan 0.005% Eye Drops -] 1 drop HS 04/12/17 pe: Vital Signs Period Temp Pulse Resp BP Sys/Jones Pulse Ox Last 24 Hr 97.7 F-98.6 F 60-74 16-20 136-205/71-100 95-100 nad no jvd rrr s1s2 no mrg cta bl nl eff aaox3 no le e/c/c abd nt nd posbs no jaundice diaphoresis pos dp pt no carotid bruits Laboratory Last Values WBC 10.0 K/mm3 (4.0-10.0) 04/12/17 16:50 RBC 4.67 M/mm3 (3.60-5.2) 04/12/17 16:50 Hgb 13.2 GM/dL (10.7-15.3) 04/12/17 16:50 Hct 39.2 % (32.4-45.2) 04/12/17 16:50 MCV 84.0 fl (80-96) 04/12/17 16:50 MCH 28.2 pg (25.7-33.7) 04/12/17 16:50 MCHC 33.6 g/dl (32.0-36.0) 04/12/17 16:50 RDW 14.1 % (11.6-15.6) 04/12/17 16:50 Plt Count 256 K/MM3 (134-434) 04/12/17 16:50 MPV 8.4 fl (7.5-11.1) 04/12/17 16:50 Neutrophils % 69.9 % (42.8-82.8) 04/12/17 16:50 Lymphocytes % 17.5 % (8-40) 04/12/17 16:50 Monocytes % 10.1 % (3.8-10.2) 04/12/17 16:50 Eosinophils % 1.1 % (0-4.5) 04/12/17 16:50 Basophils % 1.4 % (0-2.0) 04/12/17 16:50 Sodium 142 mmol/L (136-145) 04/13/17 07:10 Potassium 3.9 mmol/L (3.5-5.1) 04/13/17 07:10 Chloride 107 mmol/L (98-107) 04/13/17 07:10 Carbon Dioxide 28 mmol/L (21-32) 04/13/17 07:10 Anion Gap 7 (8-16) L 04/13/17 07:10 BUN 17 mg/dL (7-18) 04/13/17 07:10 Creatinine 0.9 mg/dL (0.55-1.02) 04/13/17 07:10 Creat Clearance w eGFR Cancelled 04/12/17 16:50 POC Glucometer 114 UNITS (80-120) 04/13/17 05:13 Random Glucose 111 mg/dL (74-106) H 04/13/17 07:10 Calcium 8.7 mg/dL (8.5-10.1) 04/13/17 07:10 Phosphorus 3.7 mg/dL (2.5-4.9) 04/13/17 07:10 Magnesium 2.0 mg/dL (1.8-2.4) 04/13/17 07:10 Total Bilirubin Cancelled 04/12/17 16:50 AST Cancelled 04/12/17 16:50 ALT Cancelled 04/12/17 16:50 Alkaline Phosphatase Cancelled 04/12/17 16:50 Creatine Kinase Cancelled 04/12/17 16:50 Troponin I Cancelled 04/12/17 16:50 B-Natriuretic Peptide Cancelled 04/12/17 16:50 Total Protein Cancelled 04/12/17 16:50 Albumin Cancelled 04/12/17 16:50 ecg: sr, pacs, nl intervals, no ischemic changes tele: sr, pacs a/p: 71 f hx htn, dm sent to er from pmd for high bp. htn: -improved. cont home meds bystolic and lisinopril. Will also add norvasc 5 as well. dm: -stable, per pmd abnl ecg: -ecg and tele showing occasional pacs -pt w/o sxs -check echo -cont bystolic if echo benign and bp improved, then pt ok for dc later today from cardiac pov.
[2017-04-13] MEDS ORDERED: amLODIPine BESYLATE 5 MG TABLET (FP) PO SCH (11:45)
--- NOTE | 2017-04-13 17:15 | DS ---
Physical Exam: SUBJECTIVE: Patient seen and examined. No acute events overnight. Patient offers no new complaints. Denies headache, dizziness, chest pain, nausea, vomiting, SOB, dysuria, visual defects. OBJECTIVE: Vital Signs Period Temp Pulse Resp BP Sys/Jones Pulse Ox Last 24 Hr 97.7 F-98.6 F 60-76 16-20 136-195/68-100 95-98 PHYSICAL EXAM GENERAL: The patient is awake, alert, and fully oriented, in no acute distress. HEAD: Normal with no signs of trauma. EYES: PERRL, extraocular movements intact, sclera anicteric, conjunctiva clear. ENT: Ears normal, nares patent, oropharynx clear without exudates, moist mucous membranes. NECK: Trachea midline, full range of motion, supple. LUNGS: Breath sounds equal, clear to auscultation bilaterally, no wheezes, no crackles, no accessory muscle use. HEART: Regular rate and rhythm, S1, S2 without murmur, rub or gallop. ABDOMEN: Soft, nontender, nondistended, normoactive bowel sounds, no guarding, no rebound, no hepatosplenomegaly, no masses. EXTREMITIES: 2+ pulses, warm, well-perfused, no edema. NEUROLOGICAL: Cranial nerves II through XII grossly intact. Normal speech, gait not observed. PSYCH: Normal mood, normal affect. SKIN: Warm, dry, normal turgor, no rashes or lesions noted. LABS Laboratory Results - last 24 hr 04/12/17 04/12/17 04/13/17 16:50 22:31 05:13 Sodium Cancelled Potassium Cancelled Chloride Cancelled Carbon Dioxide Cancelled Anion Gap Cancelled BUN Cancelled Creatinine Cancelled Creat Clearance w eGFR Cancelled POC Glucometer 129.30746 114 Random Glucose Cancelled Calcium Cancelled Phosphorus Magnesium Total Bilirubin Cancelled AST Cancelled ALT Cancelled Alkaline Phosphatase Cancelled Creatine Kinase Cancelled Troponin I Cancelled B-Natriuretic Peptide Cancelled Total Protein Cancelled Albumin Cancelled 04/13/17 04/13/17 07:10 12:24 Sodium 142 Potassium 3.9 Chloride 107 Carbon Dioxide 28 Anion Gap 7 L BUN 17 Creatinine 0.9 Creat Clearance w eGFR POC Glucometer 114 Random Glucose 111 H Calcium 8.7 Phosphorus 3.7 Magnesium 2.0 Total Bilirubin AST ALT Alkaline Phosphatase Creatine Kinase Troponin I B-Natriuretic Peptide Total Protein Albumin HOSPITAL COURSE: Date of Admission:04/12/17 This is a 71 year old female with a significant medical history of hypertension and diabetes, right breast CA for which she is currently taking Arimidex (a hormone based chemotherapy) who was sent over from clinic due to elevated blood pressure. In the ER bp was 205/95. Patient was closely monitored and also followed by Cardiology. Echo was done which was unremarkable. Patient was started on Norvasc 5mg in addition to her Home medications. BP improved. Patient medically cleared for discharge. She will follow with her PCP and track oiler in 1 week. Patient's questions and concerned answered. She is in agreement to monitor her BP daily at home and take medications as directed. Date of Discharge: 04/13/17 Minutes to complete discharge: 35 Discharge Summary Reason For Visit: HYPERTENSION Current Active Problems Elevated blood pressure reading (Acute) Hypertensive urgency (Acute) Condition: Improved - Instructions Diet, Activity, Other Instructions: You were here because of high blood pressure. You will need to start monitoring your blood pressure at home daily. We have prescribed you a Blood pressure monitor. Pick it up from your pharmacy. We started you on a new medication for your high blood pressure. Please note this new medication can cause swelling. Also if you have any rashes, call your doctor. Please take medications as directed. Follow up with your primary care physician in 1 week. If you have worsening chest pain, shortness of breath, dizziness, or headache, call your doctor or go to the nearest emergency room. Referrals: Ben Lugo MD [Primary Care Provider] - 1 Week Alessandro Finley MD [Staff Physician] - 1 Week Disposition: HOME - Home Medications Comprehensive Discharge Medication List: Ambulatory Orders metFORMIN HCL [Glucophage -] 500 mg PO BID #0 tablet 11/15/12 Lisinopril [Prinivil -] 40 mg PO DAILY 07/28/15 Alprazolam [Xanax] 0.25 mg PO TID PRN #12 tablet MDD 3 tab 11/17/16 Anastrozole [Arimidex -] 1 mg PO DAILY 11/17/16 Nebivolol [Bystolic -] 10 mg PO DAILY 11/17/16 Latanoprost 0.005% Eye Drops [Xalatan 0.005% Eye Drops -] 1 drop HS 04/12/17 Amlodipine Besylate [Norvasc -] 5 mg PO DAILY #30 tablet 04/13/17 Blood Pressure Test Kit-Medium [Blood Pressure Monitor] 1 each [facility] DAILY #1 kit 04/13/17 Omeprazole 40 mg PO DAILY 04/13/17 This patient is new to me today: Yes Date on this admission: 04/13/17 Emergency Visit: Yes ED Registration Date: 04/12/17 Care time: The patient presented to the Emergency Department on the above date and was hospitalized for further evaluation of their emergent condition. Critical Care patient: No - Discharge Referral Referred to [facility] Med [facility].C.: No
--- NOTE | 2017-04-13 17:54 | PN ---
Teaching Attending Note Name of Resident: Stephanie Stout ATTENDING PHYSICIAN STATEMENT Time of evaluation: 11:35 AM I saw and evaluated the patient. I reviewed the resident's note and discussed the case with the resident. I agree with the resident's findings and plan as documented. SUBJECTIVE: patient seen and examined. No complaints. Denies any headache, chest pain, visual or speech disturbances, palpitations. Reports some anxiety. OBJECTIVE: Vital Signs Period Temp Pulse Resp BP Sys/Jones Pulse Ox Last 24 Hr 97.7 F-98.6 F 60-76 16-20 136-195/68-100 95-98 Intake & Output 04/10/17 04/11/17 04/12/17 04/13/17 23:59 23:59 23:59 23:59 Weight 154 lb 152 lb 9.6 oz General: sitting in bed in no acute distress CVS:S1S2 regular Chest: CTAB, no rales or wheezing abdomen: soft, obese, NT extremities: no edema Home Medication List Medication Instructions Recorded Confirmed Type Lisinopril [Prinivil -] 40 mg PO DAILY 07/28/15 04/12/17 History Anastrozole [Arimidex -] 1 mg PO DAILY 11/17/16 04/12/17 History Nebivolol [Bystolic -] 10 mg PO DAILY 11/17/16 04/12/17 History Latanoprost 0.005% Eye Drops 1 drop HS 04/12/17 04/12/17 History [Xalatan 0.005% Eye Drops -] Omeprazole 40 mg PO DAILY 04/13/17 04/13/17 History Active Medications Generic Name Dose Route Start Last Admin Trade Name Freq PRN Reason Stop Dose Admin Alprazolam 0.25 mg 04/12/17 18:52 Xanax - PO Q8H PRN ANXIETY Amlodipine Besylate 5 mg 04/13/17 10:04/13/17 10:26 Norvasc - PO 5 mg DAILY [facility] Administration Anastrozole 1 mg 04/13/17 10:04/13/17 11:01 Arimidex - PO 1 mg DAILY [facility] Administration Heparin Sodium (Porcine) 5,000 unit 04/12/17 22:00 04/13/17 13:51 Heparin - SQ 5,000 unit TID [facility] Administration Insulin Aspart 1 vial 04/12/17 22:00 04/13/17 17:06 Novolog Vial Sliding Scale - SQ Not Given ACHS [facility] Protocol Lisinopril 40 mg 04/13/17 10:00 04/13/17 09:06 Prinivil PO 40 mg DAILY [facility] Administration Nebivolol 10 mg 04/13/17 10:00 04/13/17 09:06 Bystolic - PO 10 mg DAILY [facility] Administration Pantoprazole Sodium 40 mg 04/13/17 10:00 04/13/17 09:06 Protonix - PO 40 mg DAILY [facility] Administration Laboratory Results - last 24 hr 04/12/17 04/12/17 04/13/17 16:50 22:31 05:13 Sodium Cancelled Potassium Cancelled Chloride Cancelled Carbon Dioxide Cancelled Anion Gap Cancelled BUN Cancelled Creatinine Cancelled Creat Clearance w eGFR Cancelled POC Glucometer 129.22736 114 Random Glucose Cancelled Calcium Cancelled Phosphorus Magnesium Total Bilirubin Cancelled AST Cancelled ALT Cancelled Alkaline Phosphatase Cancelled Creatine Kinase Cancelled Troponin I Cancelled B-Natriuretic Peptide Cancelled Total Protein Cancelled Albumin Cancelled 04/13/17 04/13/17 04/13/17 07:10 12:24 17:05 Sodium 142 Potassium 3.9 Chloride 107 Carbon Dioxide 28 Anion Gap 7 L BUN 17 Creatinine 0.9 Creat Clearance w eGFR POC Glucometer 114 137 Random Glucose 111 H Calcium 8.7 Phosphorus 3.7 Magnesium 2.0 Total Bilirubin AST ALT Alkaline Phosphatase Creatine Kinase Troponin I B-Natriuretic Peptide Total Protein Albumin ASSESSMENT AND PLAN: 71 yof with HTN, DM, right breast Cancer on arimidex here with hypertensive urgency. -Hypertensive Urgency -NIDDM -Right breast Cancer on arimidex Plan: Cardiology input appreciated. Start norvasc 5 mg daily. 2D echo reviewed. Continue home lisinopril and bisoprolol. dispo planning in 24 hours as BP continues to improve.
[2017-04-13] MEDS ORDERED: amLODIPine BESYLATE 5 MG TABLET (FP) PO ONE (18:59)
[2017-04-14] MEDS: HEPARIN NA (PORCINE) 5,000 UNITS/ML 1ML VIAL SQ SCH (06:35)
[2017-04-14] MEDS: INSULIN SLIDING SCALE (NOVOLOG) 1 VIAL SQ SCH ×2 (06:35→11:26)
[2017-04-14] MEDS ORDERED: PT OWN MED DRAWER 7, Y5N ONE (08:15)
[2017-04-14 09:07] VITALS: TEMP 98
[2017-04-14] MEDS: ANASTROZOLE 1 MG TABLET PO SCH (09:37)
[2017-04-14] MEDS: PANTOPRAZOLE 40 MG TABLET (FP) PO SCH (09:37)
[2017-04-14] MEDS: amLODIPine BESYLATE 5 MG TABLET (FP) PO SCH (09:37)
[2017-04-14] MEDS: LISINOPRIL 20 MG TABLET (FP) PO SCH (09:37)
[2017-04-14] MEDS: NEBIVOLOL 10 MG TABLET (FP) PO SCH (09:37)
--- NOTE | 2017-04-14 11:18 | PN ---
Progress Note (short form) - Note Progress Note: s: no cp sob palps dizzy o: Vital Signs Period Temp Pulse Resp BP Sys/Jones Pulse Ox Last 24 Hr 97.8 F-98.6 F 60-76 18-20 142-184/62-94 95-96 nad no jvd rrr s1s2 no mrg cta bl nl eff aaox3 no le e/c/c abd nt nd posbs no jaundice diaphoresis Current Medications Generic Name Dose Route Start Last Admin Trade Name Freq PRN Reason Stop Dose Admin Amlodipine Besylate 5 mg 04/13/17 10:00 04/14/17 09:37 Norvasc - PO 5 mg DAILY [facility] Administration Anastrozole 1 mg 04/13/17 10:00 04/14/17 09:37 Arimidex - PO 1 mg DAILY [facility] Administration Heparin Sodium (Porcine) 5,000 unit 04/12/17 22:00 04/14/17 06:35 Heparin - SQ 5,000 unit TID [facility] Administration Insulin Aspart 1 vial 04/12/17 22:00 04/14/17 06:35 Novolog Vial Sliding Scale - SQ Not Given ACHS [facility] Protocol Lisinopril 40 mg 04/13/17 10:00 04/14/17 09:37 Prinivil PO 40 mg DAILY [facility] Administration Nebivolol 10 mg 04/13/17 10:00 04/14/17 09:37 Bystolic - PO 10 mg DAILY [facility] Administration Pantoprazole Sodium 40 mg 04/13/17 10:00 04/14/17 09:37 Protonix - PO 40 mg DAILY [facility] Administration CBC, BMP 04/12/17 16:50 04/13/17 07:10 ecg: sr, pacs, nl intervals, no ischemic changes tele: sr echo 03/2017: nl lv/rv, mild mr/tr/pr, rvsp 30-40 a/p: 71 f hx htn, dm sent to er from pmd for high bp. htn: -improved. cont current meds. dm: -stable, per pmd abnl ecg: -ecg and tele showing occasional pacs -pt w/o sxs. echo unremarkable. -cont bystolic ok for dc from cardiac pov.
--- NOTE | 2017-04-14 11:46 | PN ---
Teaching Attending Note Name of Resident: Celia Figueroa ATTENDING PHYSICIAN STATEMENT Time of evaluation: 8:45 AM I saw and evaluated the patient. I reviewed the resident's note and discussed the case with the resident. I agree with the resident's findings and plan as documented with exceptions mentioned below. SUBJECTIVE: Patient seen and examined. no complaints. OBJECTIVE: Vital Signs Period Temp Pulse Resp BP Sys/Jones Pulse Ox Last 24 Hr 97.8 F-98.6 F 60-76 18-20 142-184/62-94 95-96 Intake & Output 04/11/17 04/12/17 04/13/17 04/14/17 23:59 23:59 23:59 23:59 Intake Total 200 Balance 200 Weight 154 lb 152 lb 9.6 oz General: sitting in bed in no acute distress Chest: CTAB, no rales or wheezing abdomen: soft, obese, NT extremities: no edema Home Medication List Medication Instructions Recorded Confirmed Type Lisinopril [Prinivil -] 40 mg PO DAILY 07/28/15 04/12/17 History Anastrozole [Arimidex -] 1 mg PO DAILY 11/17/16 04/12/17 History Nebivolol [Bystolic -] 10 mg PO DAILY 11/17/16 04/12/17 History Latanoprost 0.005% Eye Drops 1 drop HS 04/12/17 04/12/17 History [Xalatan 0.005% Eye Drops -] Omeprazole 40 mg PO DAILY 04/13/17 04/13/17 History Active Medications Generic Name Dose Route Start Last Admin Trade Name Freq PRN Reason Stop Dose Admin Amlodipine Besylate 5 mg 04/13/17 10:04/14/17 09:37 Norvasc - PO 5 mg DAILY [facility] Administration Anastrozole 1 mg 04/13/17 10:00 04/14/17 09:37 Arimidex - PO 1 mg DAILY [facility] Administration Heparin Sodium (Porcine) 5,000 unit 04/12/17 22:00 04/14/17 06:35 Heparin - SQ 5,000 unit TID [facility] Administration Insulin Aspart 1 vial 04/12/17 22:00 04/14/17 11:26 Novolog Vial Sliding Scale - SQ Not Given ACHS [facility] Protocol Lisinopril 40 mg 04/13/17 10:04/14/17 09:37 Prinivil PO 40 mg DAILY [facility] Administration Nebivolol 10 mg 04/13/17 10:00 04/14/17 09:37 Bystolic - PO 10 mg DAILY [facility] Administration Pantoprazole Sodium 40 mg 04/13/17 10:00 04/14/17 09:37 Protonix - PO 40 mg DAILY [facility] Administration ASSESSMENT AND PLAN: 71 yof with HTN, DM, right breast Cancer on arimidex here with hypertensive urgency. -Hypertensive Urgency -NIDDM -Right breast Cancer on arimidex Plan: Cardiology input appreciated. BP improved on norvasc, 2D echo reviewed. Continue home lisinopril and bisoprolol. d/c home today with outpatient follow up. Patient advised on home BP monitoring Plan discussed with patient in detail, all questions answered.
[2017-04-14 13:16] VITALS: BP 152/70; PULSE 62
--- NOTE | 2017-04-14 13:21 | PN ---
Physical Exam: SUBJECTIVE: Patient seen and examined no new complaints ; bp controlled. Denies headache, blurry vision, chest pain, sob, leg swelling. OBJECTIVE: Vital Signs Period Temp Pulse Resp BP Sys/Jones Pulse Ox Last 24 Hr 97.8 F-98.6 F 60-76 18-20 142-184/62-94 95-96 GENERAL: The patient is awake, alert, and fully oriented, in no acute distress. HEAD: Normal with no signs of trauma. LUNGS: Breath sounds equal, clear to auscultation bilaterally, no wheezes, no crackles, no accessory muscle use. HEART: Regular rate and rhythm, S1, S2 without murmur, rub or gallop. ABDOMEN: Soft, nontender, nondistended, normoactive bowel sounds, no guarding, no rebound, no hepatosplenomegaly, no masses. EXTREMITIES: 2+ pulses, warm, well-perfused, no edema. Laboratory Results - last 24 hr 04/13/17 04/13/17 04/14/17 17:05 22:04 05:29 POC Glucometer 137 121 118 04/14/17 11:10 POC Glucometer 135 Active Medications Generic Name Dose Route Start Last Admin Trade Name Freq PRN Reason Stop Dose Admin Amlodipine Besylate 5 mg 04/13/17 10:00 04/14/17 09:37 Norvasc - PO 5 mg DAILY [facility] Administration Anastrozole 1 mg 04/13/17 10:00 04/14/17 09:37 Arimidex - PO 1 mg DAILY [facility] Administration Heparin Sodium (Porcine) 5,000 unit 04/12/17 22:00 04/14/17 06:35 Heparin - SQ 5,000 unit TID [facility] Administration Insulin Aspart 1 vial 04/12/17 22:00 04/14/17 11:26 Novolog Vial Sliding Scale - SQ Not Given ACHS [facility] Protocol Lisinopril 40 mg 04/13/17 10:00 04/14/17 09:37 Prinivil PO 40 mg DAILY [facility] Administration Nebivolol 10 mg 04/13/17 10:04/14/17 09:37 Bystolic - PO 10 mg DAILY [facility] Administration Pantoprazole Sodium 40 mg 04/13/17 10:00 04/14/17 09:37 Protonix - PO 40 mg DAILY [facility] Administration ASSESSMENT/PLAN: 71 y with medical history of DM on metformin and hypertension, who presented with elevated blood pressure. Norvasc 5mg po daily was added to her hypertension daily medications. Echo wnl except for mild pulmonary hypertension. Seen by cardiology, with follow as outpatient. BP currently stable. D/C home. Problem List - Problems (1) Hypertensive urgency Code(s): I16.0 - HYPERTENSIVE URGENCY (2) Hypertension Code(s): I10 - ESSENTIAL (PRIMARY) HYPERTENSION Qualifiers: Hypertension type: essential hypertension Qualified Code(s): I10 - Essential (primary) hypertension Visit type - Emergency Visit Emergency Visit: Yes ED Registration Date: 04/12/17 Care time: The patient presented to the Emergency Department on the above date and was hospitalized for further evaluation of their emergent condition. - New Patient This patient is new to me today: No - Critical Care Critical Care patient: No
== END 2017-04-14 13:58 | disposition home or self-care (01) ==
LOC: JER 15:18 → JERBED 18:24 → J4W 04-13 03:08
PROVIDERS: ADMIT Internal Medicine; ATTEND Hospitalist
PROC: 3E013GC Introduction of Other Therapeutic Substance into Subcutaneous Tissue, Percutaneous Approach (ICD-10-PCS; principal; 2017-04-12)
DX: I16.0 Hypertensive urgency (principal); I10 Essential (primary) hypertension; E11.9 Type 2 diabetes mellitus without complications; C50.911 Malignant neoplasm of unspecified site of right female breast; Z92.21 Personal history of antineoplastic chemotherapy; Z88.0 Allergy status to penicillin; Z79.84 Long term (current) use of oral hypoglycemic drugs
CPT/HCPCS: 36415; 80048; 82962; 83735; 84100; 85025; 93005; 93010; 93306-TC; 96372; 99285-25; G0378; J1644

== ENCOUNTER 2023-04-23 10:04 | Emergency (ER) | payer OTHER, MEDICARE ==
[2023-04-23 10:31] VITALS: BMI 29.2
[2023-04-23 15:04] VITALS: BP 115/69; PULSE 80; RESP 16; TEMP 99.5
== END 2023-04-23 15:21 | disposition home or self-care (01) ==
LOC: JER 10:04
DX: S30.0XXA Contusion of lower back and pelvis, initial encounter (principal); M54.9 Dorsalgia, unspecified; M25.511 Pain in right shoulder; R51.9 Headache, unspecified; W01.0XXA Fall on same level from slipping, tripping and stumbling without subsequent striking against object, initial encounter; Y93.89 Activity, other specified; Y92.009 Unspecified place in unspecified non-institutional (private) residence as the place of occurrence of the external cause
CPT/HCPCS: 70450-TC; 71046-TC-FY; 72100-TC-FY; 72125-TC; 73030-TC-RT-FY; 99284-25